=== PATIENT | female | born 1955 | race Caucasian/White ===

== ENCOUNTER → 2016-12-13 | Outpatient (CLI) | payer OTHER | LOC: BMCIMAGING 11:08 | PROVIDERS: ATTEND Internal Medicine | DX: E21.0 Primary hyperparathyroidism (principal) ==

== ENCOUNTER → 2017-07-07 | Outpatient (CLI) | payer OTHER | LOC: BMCIMAGING 18:25 | PROVIDERS: ATTEND Emergency Medicine | DX: J40 Bronchitis, not specified as acute or chronic (principal) ==

== ENCOUNTER 2018-11-30 05:46 | Inpatient (IN) | payer OTHER ==
[2018-11-30] MEDS ORDERED: FAMOTIDINE 20 MG TAB PO ONE (05:57)
[2018-11-30] MEDS ORDERED: DEXAMETHASONE 4 MG/ML VIAL IVP ONE (05:57)
[2018-11-30] MEDS ORDERED: ACETAMINOPHEN 325 MG TAB PO ONE (05:57)
[2018-11-30] MEDS ORDERED: ceFAZolin 2 GM/DEXTROSE 100 ML IV ONE (05:57)
[2018-11-30] MEDS ORDERED: LR 1,000 ML IV ONE (06:00)
[2018-11-30] MEDS ORDERED: ROPIVACAINE 0.2% 80 MG, EPINEPHrine 0.2 MG, KETOROLAC TROMETHAMINE 30 MG in SYRINGE 0 ML IU ONE (06:00)
[2018-11-30] MEDS ORDERED: TRANEXAMIC ACID 3,000 MG in NS (SYRINGE) 50 ML IRR ONE (06:00)
--- NOTE | 2018-11-30 06:50 | PDANEPAE ---
ANE History of Present Illness right knee DJD, here for TKA ANE Past Medical History - Cardiovascular History Hx Hypertension: Yes Hx Arrhythmias: No Hx Chest Pain: No Hx Coronary Artery / Peripheral Vascular Disease: No Hx CHF / Valvular Disease: No Hx Palpitations: No - Pulmonary History Hx COPD: No Hx Asthma/Reactive Airway Disease: No Hx Recent Upper Respiratory Infection: No Hx Oxygen in Use at Home: No Hx Sleep Apnea: No Sleep Apnea Screening Result - Last Documented: Negative - Neurologic History Hx Cerebrovascular Accident: No Hx Seizures: No Hx Dementia: No - Endocrine History Hx Diabetes: Yes Endocrine History Comment: NIDDM. Graves disease - Renal History Hx Renal Disorders: No - Liver History Hx Hepatic Disorders: No - Neurological & Psychiatric Hx Hx Neurological and Psychiatric Disorders: No - Cancer History Hx Cancer: No - Congenital Disorder History Hx Congenital Disorders: Yes Congenital History Comment: diabetic,HTN. arthritis - GI History Hx Gastrointestinal Disorders: No - Other Health History Other Health History: bruises easily - Chronic Pain History Chronic Pain: No - Surgical History Prior Surgeries: knee scope 2002 ANE Review of Systems Review of Systems: - Exercise capacity METS (RN): 4 METS ANE Patient History - Allergies Allergies/Adverse Reactions: No Known Allergies Allergy (Verified 11/19/18 13:05) - Home Medications Home Medications: Aspirin [Aspirin 81mg (*)] 81 mg PO DAILY 11/19/18 [Last Taken 11/23/18] Cholecalciferol Vit D3 [Vitamin D3 2000 units tab (OTC)] 2,000 units PO HS 11/19 [Last Taken 11/23/18] Empagliflozin [Jardiance] 10 mg PO DAILY 11/19/18 [Last Taken 11/29/18] Furosemide [Lasix 40 MG (*)] 40 mg PO DAILY 11/19/18 [Last Taken 11/29/18] Ibuprofen [Motrin (*)] 400 mg PO DAILY PRN 11/19/18 [Last Taken 11/23/18] Levothyroxine [Synthroid 125 mcg (*)] 125 mcg PO DAILY06 11/19/18 [Last Taken ] Norethindrone AC-Eth Estradiol [Jinteli 1 mg-5 Mcg Tablet] 0.5 each PO DAILY [Last Taken 11/25/18] Simvastatin [Zocor] 20 mg PO DAILY18 11/19/18 [Last Taken 11/29/18] Valsartan [Diovan (*)] 160 mg PO DAILY 11/19/18 [Last Taken 11/30/18] Verapamil ER [Calan SR/ER 240MG (*)] 240 mg PO DAILY 11/19/18 [Last Taken ] metFORMIN HCL [Glucophage 500 mg (*)] 1,000 mg PO BIDMEAL 11/19/18 [Last Taken 11/26/18] sitaGLIPtin PHOSPHATE [Januvia 100 MG (*)] 100 mg PO DAILY 11/19/18 [Last Taken 11/29/18] - NPO status NPO Since - Liquids (Date): 11/30/18 NPO Since - Liquids (Time): 04:15 NPO Since - Solids (Date): 11/29/18 NPO Since - Solids (Time): 18:30 - Smoking Hx Smoking Status: Never smoked - Family Anes Hx Family Hx Anesthesia Complications: none ANE Labs/Vital Signs - Vital Signs Height: 165.1 cm Weight: 76.204 kg ANE Physical Exam - Airway Neck exam: FROM Mallampati Score: Class 2 Mouth exam: normal dental/mouth exam - Pulmonary Pulmonary: no respiratory distress, no rales or rhonchi - Cardiovascular Cardiovascular: regular rate and rhythym, no murmur, rub, or gallop - ASA Status ASA Status: III ANE Anesthesia Plan Anesthesia Plan: GA with mask, spinal Regional Anesthesia: single shot NB Total IV Anesthesia: Yes
[2018-11-30] MEDS ORDERED: ceFAZolin 1 GM/5 ML SYR ONE (06:51)
[2018-11-30] MEDS ORDERED: TRANEXAMIC ACID 3,000 MG/50 ML BAG IRR ONE (06:51)
[2018-11-30] MEDS ORDERED: MIDAZOLAM 2 MG/2 ML VIAL IVP ONE (06:57)
--- NOTE | 2018-11-30 06:59 | PDHPUP ---
History & Physical Update H&P update statement: This history and physical update is based on an assessment of the patient which was completed after admission or registration (within 24 hours), but prior to the surgery/procedure. H&P update: H&P reviewed & patient examined, no change in patient's condition since H&P completed
[2018-11-30] MEDS ORDERED: PROPOFOL/EMULSION 500 MG/50 ML BOTTLE IV ONE ×3 (07:08→09:09)
[2018-11-30] MEDS ORDERED: DEXAMETHASONE 4 MG/ML VIAL ONE (07:08)
[2018-11-30] MEDS ORDERED: BUPIVACAINE/DEXTROSE 7.5MG/ML 2 ML SPINAL AMP SP ONE (07:08)
[2018-11-30] MEDS ORDERED: ONDANSETRON 4 MG/2 ML VIAL ONE (07:08)
[2018-11-30] MEDS ORDERED: fentaNYL 100 MCG/2 ML INJ ONE ×2 (07:08→11:20)
[2018-11-30] MEDS ORDERED: LIDOCAINE 2% 100 MG/5 ML SYR ONE (07:08)
[2018-11-30] MEDS ORDERED: ACETAMINOPHEN 500 MG TAB PO PRN (09:14)
[2018-11-30] MEDS ORDERED: oxyCODONE IR 5 MG TAB PO PRN (09:14)
[2018-11-30] MEDS ORDERED: METOCLOPRAMIDE 10 MG/2 ML VIAL IVP PRN ×2 (09:14→10:05)
[2018-11-30] MEDS ORDERED: fentaNYL 100 MCG/2 ML INJ IVP PRN (09:14)
[2018-11-30] MEDS ORDERED: PROMETHAZINE HCL 25 MG/ML INJ IVP PRN ×2 (09:14→10:05)
[2018-11-30] MEDS ORDERED: LR 500 ML IV PRN (09:14)
[2018-11-30] MEDS ORDERED: HYDROmorphONE/DILAUDID 1 MG/ML INJ IVP PRN (09:14)
[2018-11-30] MEDS ORDERED: NALOXONE HCL 0.4 MG/ML INJ IVP PRN (09:14)
[2018-11-30] MEDS ORDERED: MEPERIDINE 25 MG/0.5 ML AMP IVP PRN (09:14)
[2018-11-30] MEDS ORDERED: ROPIVACAINE HCL 150 MG/30 ML INJ ONE (09:39)
--- NOTE | 2018-11-30 10:01 | POSTANESTH ---
Post Anesthetic Evaluation Cardiovascular Status: Normal, Stable Respiratory Status: Normal, Stable Level of Consciousness/Mental Status: Can Participate in Eval, Mildly Sleepy, Arousable Pain Control: Adequate, Prn Tx Ordered Nausea/Vomiting Control: Adequate, Prn Tx Ordered Complications Possibly Related to Anesthesia: None Noted
[2018-11-30] MEDS ORDERED: BISACODYL 10 MG SUPP PR PRN (10:05)
[2018-11-30] MEDS ORDERED: LACTULOSE 20 GM/30 ML UDCUP PO PRN (10:05)
[2018-11-30] MEDS ORDERED: diphenhydrAMINE 25 MG CAP PO PRN (10:05)
[2018-11-30] MEDS ORDERED: ONDANSETRON DISINTEGRATING 4 MG TAB PO PRN (10:05)
[2018-11-30] MEDS ORDERED: DIPHENOXYLATE/ATROPINE LOMOTIL 1 TAB PO PRN (10:05)
[2018-11-30] MEDS ORDERED: ONDANSETRON 4 MG/2 ML VIAL IVP PRN (10:05)
[2018-11-30] MEDS ORDERED: CYCLOBENZAPRINE 10 MG TAB PO PRN (10:05)
[2018-11-30] MEDS ORDERED: PROMETHAZINE HCL 25 MG SUPPR PR PRN (10:05)
[2018-11-30] MEDS ORDERED: MAGNESIUM HYDROXIDE 30 ML UDCUP PO PRN (10:05)
[2018-11-30] MEDS ORDERED: POLYETHYLENE GLYCOL 3350 17 GM PKT PO PRN (10:05)
--- NOTE | 2018-11-30 10:26 | POSTOPPROG ---
Post Op Note Date of Operation: 11/30/18 Surgeon: Elisa Delacruz Room Worker: Kelli Maria PA-C Anesthesiologist: Dr. Rachel Calderon Anesthesia: Spinal Pre-op Diagnosis: right knee osteoarthritis Post-op Diagnosis: right knee osteoarthritis Indication: right knee pain Procedure: right TKA Inf/Abcess present in the surg proc area at time of surgery?: No EBL: 50-100 Complications: none
[2018-11-30] MEDS ORDERED: DIAZEPAM 10 MG/2 ML SYR ONE (10:27)
[2018-11-30] MEDS: DIAZEPAM 10 MG/2 ML SYR IVP PRN ×2 (10:28→10:53)
--- NOTE | 2018-11-30 10:28 | SOAPPROG ---
SOAP Progress Note Assessment/Plan: Assessment/Plan: 63y/o female s/p right TKA - stable and doing well - PT/OT - post-op xrays pending - active care system, ASA for DVT prevention - patient with hypertension, diabetes, hypercholesterolemia, hypothyroid; anticipate will need >2midnights - call with issues or concerns 11/30/18 10:26 Subjective: Doing well, feeling tired Objective: Vital Signs Temp Pulse Resp BP Pulse Ox 36.3 C 94 17 146/92 H 99 11/30/18 10:20 11/30/18 06:20 11/30/18 10:16 11/30/18 10:16 11/30/18 10:16 Laboratory Results 11/30/18 06:39 NAD, waking from anesthesia, no distress EOMi, face symmetric incision clean, dressed ICD10 Worksheet Patient Problems: Problems Problem Status Onset Unilateral primary osteoarthritis, right knee Acute
[2018-11-30] MEDS ORDERED: LR 1,000 ML IV SCH (10:30)
--- NOTE | 2018-11-30 10:56 | GOP ---
[f rep st] OPERATIVE REPORT DATE OF OPERATION: 11/30/2018 SURGEON: Elisa Delacruz MD DULSER: VIVIANE Escobar ANESTHESIA: Spinal with sedation. PREOPERATIVE DIAGNOSIS: Severe osteoarthritis, right knee. POSTOPERATIVE DIAGNOSIS: Severe osteoarthritis, right knee. PROCEDURE PERFORMED: Right total knee arthroplasty. FINDINGS: Preoperative x-rays of the patient's right knee demonstrated severe osteoarthritis with si gnificant varus deformity of the knee. The patient had complete loss of the cartilage space in the m edial compartment. There was also moderate degenerative change of the lateral compartment and patell ofemoral joint. At the time of surgery, this finding was confirmed. The patient had 2 large loose b odies in the knee, which were removed. A cemented Joseph and Nephew Journey II total knee arthroplast y was performed. A size 3 femoral component was cemented into place on the femoral side, and a size 2 tibial baseplate was cemented, as well. A 12 mm thick cross-linked polyethylene insert was utilize d in the metal backing of the tibia. A 32 mm round patellar component was cemented, as well. Follow ing implantation of the components, the knee was taken through a range of motion and achieved full ex tension, as well as 130 degrees of flexion. The knee was stable to stressing both in extension and 3 0 degrees of flexion. The patella tracked well in the trochlear groove. ESTIMATED BLOOD LOSS: Minimal. DESCRIPTION OF PROCEDURE: The patient was taken to the operating room, placed in a supine position o n the operating table. Following induction of adequate general and spinal anesthesia, the knee and l eg were prepped and draped in the usual sterile manner. The patient received 2 g of IV Ancef. The l eg was elevated and exsanguinated, and the tourniquet inflated to 275 mmHg. The DeMayo leg henderson wa s used throughout the procedure for positioning. A midline incision was made extending from 2 finger breadths above the superior pole of the patella distally to the tibial tubercle. Incision was cristóbal d down through the subcutaneous tissue to the retinaculum of the knee. A medial parapatellar arthrot twan was then performed. The patella was everted laterally. The thickness of the patella was measure d, and then a 9 mm cut was taken from the posterior articular surface of the patella. A metal plate was placed on the cut surface to protect the patella and it was placed in the lateral gutter. The kn ee was flexed up, and then the distal femoral drill hole was made. Intramedullary referencing was ut ilized for the distal femoral cut. A +2 cut was taken from the distal femur due to preoperative flex ion contracture of the knee. The femur was then sized, and a size 3 femoral component was chosen. T he size 3 cutting block was positioned on the distal femur, and the anterior, posterior, and chamfer cuts were made. The remaining osteophytes were removed from around the edges of the femur. The notc h was then cleared with the reamer followed by the box osteotome. Next, our attention was turned to the tibia. The tibia was retracted anteriorly with a Hohmann, and the medial and lateral collateral ligaments were protected. Again, intramedullary referencing was utilized for the tibial cut. The in tramedullary guide was inserted, and then the alignment of the cutting jig was checked and then it wa s pinned. The tibial cut was made. The tibial cut was based on the charles made previously with a 9 mm thick lollipop. The knee was brought into extension and the lamina professor of business administration was used to open up the joint. The medial and lateral meniscus were removed. The posterior capsule was released, as was th e residual posterior cruciate ligament. The knee was then flexed back up and the tibia was sized. A size 2 tibial component was chosen as the best fit. A trial reduction was performed, and the 11 and 12 mm polyethylene were trialed. The 12 provided the best stability. The rotation of the tibial co mponent was marked, and then the knee was flexed up, and the femoral component and polyethylene were removed. The tibia was pinned and then the keel punch was utilized. The trial tibial component was removed and the patella was prepared by drilling. All the bony surfaces were thoroughly irrigated, a nd then tranexamic acid was injected in the posterior capsule as well as the soft tissues. The joint cocktail was also injected in the posterior capsule. The components were opened and the cement was mixed. The tibial component was cemented 1st, followed by the femur and the patella. The knee was b rought into extension and held while the cement hardened. Excess cement was removed from around the components. The wound was thoroughly irrigated out, and then the knee was flexed up and the trial po lyethylene was removed, and the 12 mm cross-linked polyethylene was opened and inserted. Stability a nd range of motion were checked, and were as noted in the findings above. The retinaculum of the kne e was then closed using #2 FiberWire in interrupted fashion. The subcutaneous tissues were closed us ing 2-0 Vicryl. The skin was closed using william. Sterile dressings were applied. The knee was in jected with the remainder of the joint cocktail. The patient tolerated the procedure well and there were no complications. Estimated blood loss minimal. Final sponge and needle counts were correct. The patient was transported to the recovery room in good condition. /[id number]/MODL
[2018-11-30] MEDS: oxyCODONE IR 5 MG TAB PO PRN ×3 (12:09→22:01)
--- NOTE | 2018-11-30 12:54 | PDMN ---
Medical Necessity Medical necessity: [facility] [place] S700 [place] artrhopalsty- OP: R TKA -- AUTH #[id number] FOR CPT 04654 INPT
--- NOTE | 2018-11-30 15:04 | SOAPPROG ---
SOAP Progress Note Assessment/Plan: Assessment: 63 year old female s/p right TKA - procedure earlier this morning Doing well X-rays look good Plan: Begin d/c planning - she is planning on going home, hopefully tomorrow - will have the support of her friend Continue PT/OT efforts - has outpatient PT scheduled for next Friday Continue oral pain medication - Tylenol, oxycodone, celebrex, flexeril Continue VTE ppx - Active Care System, Aspirin 325 mg once daily (x 1 month) Change dressing tomorrow Will follow up with Dr. Delacruz in approximately 2 weeks Subjective: Patient states she feels pretty good at this time, she is a bit achy because she just finished PT. She is hoping to go home tomorrow and her friend from [place] will be helping her. She denies SOB, CP, fever, chills. Objective: Vital Signs Temp Pulse Resp BP Pulse Ox 36.2 C 83 16 133/80 H 100 11/30/18 14:52 11/30/18 14:52 11/30/18 14:52 11/30/18 14:52 11/30/18 14:52 Laboratory Results 11/30/18 06:39 11/29/18 11/30/18 12/01/18 05:59 05:59 05:59 Intake Total 1440 Output Total 800 Balance 640 Patient sitting comfortably in her chair, no acute distress. Her friend is in the room. RLE: Wound dressings are clean, dry and intact. Lower leg compartments are soft and nontender. Negative Homans sign bilaterally. She can actively DF and PF her feet and great toes against resistance. Grossly NVI distally. ICD10 Worksheet Patient Problems: Problems Problem Status Onset Unilateral primary osteoarthritis, right knee Acute
[2018-11-30] MEDS: ACETAMINOPHEN 325 MG TAB PO SCH ×2 (16:41→22:00)
[2018-11-30] MEDS: ceFAZolin 2 GM/DEXTROSE 100 ML IV SCH (16:41)
[2018-11-30] MEDS: metFORMIN HCL 500 MG TAB PO SCH (17:41)
[2018-11-30] MEDS ORDERED: ATORVASTATIN CALCIUM 10 MG TAB PO SCH (18:00)
[2018-11-30] MEDS: SENNOSIDES/DOCUSATE SODIUM TAB PO SCH (21:59)
[2018-11-30] MEDS: FAMOTIDINE 20 MG TAB PO SCH (22:01)
[2018-12-01] MEDS: ceFAZolin 2 GM/DEXTROSE 100 ML IV SCH (00:20)
[2018-12-01] MEDS: oxyCODONE IR 5 MG TAB PO PRN ×4 (02:37→13:41)
[2018-12-01] MEDS: ACETAMINOPHEN 325 MG TAB PO SCH ×2 (05:00→11:18)
[2018-12-01] MEDS ORDERED: LEVOTHYROXINE 125 MCG TAB PO SCH (06:00)
[2018-12-01] MEDS: SENNOSIDES/DOCUSATE SODIUM TAB PO SCH (08:39)
[2018-12-01] MEDS: metFORMIN HCL 500 MG TAB PO SCH (08:40)
[2018-12-01] MEDS: FAMOTIDINE 20 MG TAB PO SCH (08:44)
[2018-12-01] MEDS ORDERED: VALSARTAN 160 MG TAB PO SCH (09:00)
[2018-12-01] MEDS ORDERED: VERAPAMIL ER 240 MG TAB PO SCH (09:00)
[2018-12-01] MEDS ORDERED: Empagliflozin [Jardiance] 10 MG PO SCH (09:00)
[2018-12-01] MEDS ORDERED: ASPIRIN 325 MG TAB PO SCH (09:00)
[2018-12-01] MEDS ORDERED: FUROSEMIDE 40 MG TAB PO SCH (09:00)
[2018-12-01 11:43] VITALS: BP 143/69
--- NOTE | 2018-12-01 11:45 | ASMTCMCOM ---
CM Note CM Note Notes: Pt had planned OA of knee. Pt resides alone, will have friends/family stay with her during recovery. PT rec outpatient. Anticipate pt will d/c when medically stable, no CM d/c needs identified. CM available for changes/needs or if MD wants pt to have HC. Date Signed: 12/01/2018 11:44 AM Electronically Signed By:SWAPNA Ford
--- NOTE | 2018-12-01 12:30 | SOAPPROG ---
SOAP Progress Note Assessment/Plan: Assessment/Plan: 63y/o female s/p right TKA POD#1 - stable and doing well - PT/OT - post-op xrays stable - active care system, ASA for DVT prevention - patient with hypertension, diabetes, hypercholesterolemia, hypothyroid; doing better than anticipated, ready for discharge home - call with issues or concerns 12/01/18 12:28 Subjective: Pain well managed. Anxious to go home Objective: Vital Signs Temp Pulse Resp BP Pulse Ox 36.8 C 79 16 143/69 H 99 12/01/18 11:42 12/01/18 11:42 12/01/18 11:42 12/01/18 11:42 12/01/18 11:42 Laboratory Results 12/01/18 04:31 11/30/18 06:39 11/30/18 12/01/18 12/02/18 05:59 05:59 05:59 Intake Total 3277 Output Total 2600 Balance 677 NAD, well appearing, no distress EOMi, face symmetric extension near full flexion 60 incision CDI, no erythema or active drainage new dressing placed in sterile fashion ICD10 Worksheet Patient Problems: Problems Problem Status Onset Unilateral primary osteoarthritis, right knee Acute
--- NOTE | 2018-12-01 12:37 | PDDCSUM ---
<Deb Rutherford - Last Filed: 12/01/18 12:37> Discharge Summary Discharge Summary: ADMISSION DIAGNOSIS: Right knee severe degenerative arthritis DISCHARGE DIAGNOSIS: Right knee severe degenerative arthritis OPERATION PERFORMED: November 30, 2018 Right total knee arthroplasty POSTOPERATIVE COMPLICATIONS: None CONDITION ON DISCHARGE: Improved HPI: The patient is a 63 year old female who has end-stage arthritis of the right knee. Clinical and radiographic features are consistent with this. Patient has failed attempts at conservative management, therefore, recommended operative right total knee replacement. DESCRIPTION OF HOSPITAL COURSE: The patient was admitted to the hospital on the morning of surgery and underwent a right total knee arthroplasty. Postoperatively, patient was treated with multimodal DVT prophylaxis, including aspirin 325 mg once daily and Active Care System. Patient was seen by PT and made good progress with ambulation and stairs. On the first post-operative day the patients H&H was 13.1/37.9. Patient was able to void spontaneously. At the time of discharge, patient was afebrile, wound was clean and dry. Bulky dressing was replaced with Leukomed dressing prior to discharge. Patient is walking with a walker. DISPOSITION: The patient is discharged home and will have outpatient PT next week. Patient may progress to full weightbearing on the right lower extremity as tolerated. Aspirin 325 mg once for 1 month and she will continue to wear the Active Care System for 12 days. Patient has prescription for oxycodone for pain. Patient may also continue Tylenol and ibuprofen for pain control. The patient will be seen by Dr. Suh office in approximately 2 weeks. If there are any problems, patient is to call Dr. Suh office. <Elisa Delacruz - Last Filed: 12/03/18 15:48> Discharge Summary Discharge Summary: Follow-up on 12/07 for post-operative visit and staple removal, sooner with any issues or changes
== END 2018-12-01 14:43 | disposition home or self-care (01) | DRG 470 ==
LOC: F3E 05:46 → F3N 06:55
PROVIDERS: ADMIT Orthopaedic Surgery; ATTEND Orthopaedic Surgery
PROC: 0SRC0J9 Replacement of Right Knee Joint with Synthetic Substitute, Cemented, Open Approach (ICD-10-PCS; principal; 2018-11-30 07:15)
DX: M17.11 Unilateral primary osteoarthritis, right knee (principal); I10 Essential (primary) hypertension; E11.9 Type 2 diabetes mellitus without complications; E05.00 Thyrotoxicosis with diffuse goiter without thyrotoxic crisis or storm
CPT/HCPCS: 97116-GP; 97161-GP; 97165-GO; C1713; J0171; J0690; J1100; J1885; J2001; J2250; J2405; J2704; J2795; J3010; J3360